=== PATIENT | female | born 1940 | race Caucasian/White ===

== ENCOUNTER → 2016-09-05 | Outpatient (CLI) | payer OTHER, MEDICARE ==
[~2016-09-05] MED LIST: CEL100 PO; COL250 PO; DULERA1 AR2 INH; NORCO1 TA1 PO; PROAIR HFA0.09 MG/A1 INH; TRAMADOL HCL50 MG PO
== END | disposition home or self-care (01) ==
LOC: RD 13:42
DX: M25.552 Pain in left hip (principal); R10.2 Pelvic and perineal pain

== ENCOUNTER 2017-06-22 15:29 | Emergency (ER) | payer OTHER, MEDICARE ==
[~2017-06-22] VITALS: Ht 165.1 cm; Wt 56.2 kg
[2017-06-22 16:00] VITALS: Ht 165.1 cm; Wt 56.2 kg
[2017-06-22 17:50] LABS: PLATELET COUNT 343 x10^3mcL (130-400); RED CELL DISTRIBUTION WIDTH 12.6 % (11.5-14.5)
[2017-06-22 17:57] LABS: UA SPECIFIC GRAVITY 1.015 (1.005-1.035); microscopic required? YES; urine erythrocyte TRACE (NEGATIVE)
[2017-06-22 18:07] LABS: CALCIUM 8.8 mg/dL (8.5-10.1); CARBON DIOXIDE 28.8 mmol/L (21-32); CHLORIDE SERUM 102 mmol/L (98-107); CREATININE SERUM 0.7 mg/dL (0.6-1.0); GLUCOSE SERUM 97 mg/dL (74-106); POTASSIUM SERUM 3.9 mmol/L (3.5-5.1); SODIUM SERUM 140 mmol/L (136-145)
[2017-06-22 18:25] LABS: ALBUMIN 3.8 g/dL (3.4-5.0); ALKALINE PHOSPHATASE 106 U/L (46-116); ALT/SGPT 30 U/L (14-59); AMYLASE 63 U/L (25-115); AST/SGOT 28 U/L (15-37); BILIRUBIN TOTAL 0.26 mg/dL (0.20-1.00); LIPASE 104 IU/L (73-393); MAGNESIUM 2.5 mg/dL (1.8-2.4); T4(THYROXINE) 8.7 ug/dL (4.7-13.3); TOTAL PROTEIN, SERUM 8.1 g/dL (6.4-8.2)
[2017-06-22 18:28] LABS: CHOLESTEROL 211 mg/dL (<200); HDL CHOLESTEROL 89 mg/dL (40-60)
[2017-06-22 18:30] LABS: AMPHETAMINE QUAL UR NONE DETECTED (NEG <=1000)
[2017-06-22 19:45] VITALS: BP 130/90
== END 2017-06-22 19:45 | disposition home or self-care (01) ==
LOC: ED 15:29
PROVIDERS: Emergency Medicine
DX: F32.9 Major depressive disorder, single episode, unspecified (principal); N39.0 Urinary tract infection, site not specified; F51.09 Other insomnia not due to a substance or known physiological condition; J44.9 Chronic obstructive pulmonary disease, unspecified; G89.29 Other chronic pain; M54.9 Dorsalgia, unspecified; F41.9 Anxiety disorder, unspecified
CPT/HCPCS: 83880; G0480; J7030

== ENCOUNTER → 2017-08-30 | Outpatient (CLI) | payer OTHER, MEDICARE | END | disposition home or self-care (01) | LOC: RD 13:12 | DX: M96.1 Postlaminectomy syndrome, not elsewhere classified (principal) ==

== ENCOUNTER → 2017-12-06 | Outpatient (CLI) | payer OTHER, MEDICARE | END | disposition home or self-care (01) | LOC: RD 10:41 | DX: M54.2 Cervicalgia (principal) ==

== ENCOUNTER → 2018-02-10 | Outpatient (CLI) | payer OTHER, MEDICARE | END | disposition home or self-care (01) | LOC: RD 13:46 | DX: M25.552 Pain in left hip (principal) ==

== ENCOUNTER → 2019-10-26 | Outpatient (CLI) | payer OTHER, MEDICARE | END | disposition home or self-care (01) | LOC: CT 10:24 | PROC: BR29ZZZ Computerized Tomography (CT Scan) of Lumbar Spine (ICD-10-PCS; principal; 2019-10-26) | DX: S39.012A Strain of muscle, fascia and tendon of lower back, initial encounter (principal); X58.XXXA Exposure to other specified factors, initial encounter; Y92.9 Unspecified place or not applicable ==

== ENCOUNTER → 2019-12-22 | Outpatient (CLI) | payer OTHER, MEDICARE | END | disposition home or self-care (01) | LOC: CT 14:49 | PROC: B922ZZZ Computerized Tomography (CT Scan) of Paranasal Sinuses (ICD-10-PCS; principal; 2019-12-22) | DX: J32.0 Chronic maxillary sinusitis (principal) ==